=== PATIENT | male | born 1945 | race Two or more races ===

== ENCOUNTER 2019-10-28 11:12 | Emergency (ER) | payer MEDICARE, MEDICAID ==
[~2019-10-28] VITALS: Ht 175.3 cm; Wt 111.6 kg
[2019-10-28 11:07] VITALS: BP 126/81
[~2019-10-28 11:12] MED LIST: ASPIR 8181 MG ORAL; ATORVASTATIN CA40 MG ORAL; BENADRYL25 M3 PO; CATAPRES0.1 MG ORAL; DIGOXIN0.125 MG/2 ORAL; DULCOLAX10 MG RC; FAMOTIDINE20 MG ORAL; FERROUS SULFAT325 MG ORAL; FLEET ENEMA133 ML RECTAL; LACTULOSE10 GM PO; PRO-STAT LIQUID30 ML ORAL; VITAMIN C500 M1 GT
[2019-10-28] MEDS ORDERED: Pantoprazole Inj IV ONE (11:30)
--- NOTE | 2019-10-28 11:56 | Emergency Room Report ---
History of Present Illness General Chief Complaint: Gastrointestinal Bleed Source: Medical Record, EMS Present Illness HPI 74-year-old male presents to ED for evaluation. Per EMS patient had coffee- ground emesis today. Patient on ventilator with trach. Patient showing no signs of distress upon arrival. No reported fevers or chills. No reported shortness of breath. No sick contacts. Unable to provide any additional history at this time. No other aggravating relieving factors. Denies any other associated symptoms COVID-19 risk:Contact w/high r: No COVID-19 risk:Travel to affect: No Has patient experienced leal: No Allergies: Coded Allergies: No Known Allergies (Unverified , 08/12/19) Patient History Past Medical History: HTN, AFib, GERD, dementia Past Surgical History: pacemaker Pertinent Family History: none Social History: Denies: smoking, alcohol use, drug use Immunizations: UTD Reviewed Nursing Documentation: PMH: Agreed; PSxH: Agreed Nursing Documentation-PMH Past Medical History: No History, Except For Hx Cardiac Problems: Yes - AFIB, ANEMIA, HF Hx Hypertension: Yes Hx Pacemaker: Yes Hx Asthma: No - ENCEPHALOPATHY, CIRRHOSIS, PE Hx Diabetes: Yes Hx Cancer: No Hx Gastrointestinal Problems: Yes Hx Neurological Problems: Yes Hx Cerebrovascular Accident: Yes Hx Dementia: Yes Hx Paralysis: Yes Hx Memory Loss: Yes Review of Systems All Other Systems: limited Physical Exam Vital Signs Date Time Temp Pulse Resp B/P (MAP) Pulse Ox O2 Delivery O2 Flow Rate FiO2 10/28/19 10:59 96.8 97 20 133/93 (106) 100 Ambu-Bag 4.0 10/28/19 11:24 40 Sp02 EP Interpretation: reviewed, normal General Appearance: no apparent distress, alert, GCS 15, non-toxic Head: normocephalic, atraumatic Eyes: bilateral eye normal inspection, bilateral eye PERRL ENT: hearing grossly normal, normal pharynx, no angioedema, normal voice Neck: full range of motion, supple/symm/no masses, tracheotomy Respiratory: chest non-tender, lungs clear, normal breath sounds, speaking full sentences Cardiovascular #1: regular rate, rhythm, no edema Cardiovascular #2: 2+ carotid (R), 2+ carotid (L), 2+ radial (R), 2+ radial (L) , 2+ dorsalis pedis (R), 2+ dorsalis pedis (L) Gastrointestinal: normal bowel sounds, non tender, soft, non-distended, no guarding, no rebound Rectal: deferred Genitourinary: normal inspection, no CVA tenderness Musculoskeletal: back normal, normal range of motion, gait/station normal, non- tender Neurologic: alert, motor strength/tone normal, oriented x3, sensory intact, responsive, speech normal Psychiatric: judgement/insight normal, memory normal, mood/affect normal, no suicidal/homicidal ideation Reflexes: 3+ bicep (R), 3+ bicep (L), 3+ tricep (R), 3+ tricep (L), 3+ knee (R) , 3+ knee (L) Skin: other - see nursing skin notes Lymphatic: no adenopathy Medical Decision Making Diagnostic Impression: Primary Impression: UGIB (upper gastrointestinal bleed) Additional Impression: Chronic respiratory failure Qualified Codes: J96.10 - Chronic respiratory failure, unspecified whether with hypoxia or hypercapnia ER Course Hospital Course 74 yo M presenst with coffee ground emesis Differential diagnoses include: UGIB, LGIB, hemorrhoids Clinical course Patient placed on stretcher. phototypesetting equipment monitor. After initial history and physical I ordered labs, IV fluids, UA Labs - minimal leukocytosis, Hb/Hct stable. BUN elevated. UA unremarkable, coags ok EKG - NSR, no acute ischemic changes interpreted by me CXR - no acute process given protonix, given zofran. given IVFS. because of insurance patient will be transferred I feel this is a highly complex case requiring extensive working including EKG/ Rhythm strip, Xray/CT/US, Blood/urine lab work, repeat exams while in ED, and administration of strong opiates/narcotics for pain control, admission to hospital or close patient follow up. Diagnosis - UGIB, chronic respiratory failure transferred in serious condition Labs Test 10/28/19 11:20 10/28/19 12:11 10/28/19 13:02 White Blood Count 12.1 K/UL (4.8-10.8) Red Blood Count 3.90 M/UL (4.70-6.10) Hemoglobin 10.0 G/DL (14.2-18.0) Hematocrit 31.8 % (42.0-52.0) Mean Corpuscular Volume 82 FL (80-99) Mean Corpuscular Hemoglobin 25.7 PG (27.0-31.0) Mean Corpuscular Hemoglobin Concent 31.6 G/DL (32.0-36.0) Red Cell Distribution Width 17.3 % (11.6-14.8) Platelet Count 209 K/UL (150-450) Mean Platelet Volume 8.2 FL (6.5-10.1) Neutrophils (%) (Auto) 72.4 % (45.0-75.0) Lymphocytes (%) (Auto) 17.5 % (20.0-45.0) Monocytes (%) (Auto) 6.9 % (1.0-10.0) Eosinophils (%) (Auto) 2.1 % (0.0-3.0) Basophils (%) (Auto) 1.1 % (0.0-2.0) Urine Color Yellow Urine Appearance Clear Urine pH 6 (4.5-8.0) Urine Specific [place] 1.010 (1.005-1.035) Urine Protein 2+ (NEGATIVE) Urine Glucose (UA) Negative (NEGATIVE) Urine Ketones Negative (NEGATIVE) Urine Blood Negative (NEGATIVE) Urine Nitrite Negative (NEGATIVE) Urine Bilirubin Negative (NEGATIVE) Urine Urobilinogen Normal MG/DL (0.0-1.0) Urine Leukocyte Esterase Trace (NEGATIVE) Urine RBC 0-2 /HPF (0 - 0) Urine WBC 0-2 /HPF (0 - 0) Urine Squamous Epithelial Cells None /LPF (NONE/OCC) Urine Bacteria Occasional /HPF (NONE) Prothrombin Time 11.6 SEC (9.30-11.50) Prothromb Time International Ratio 1.1 (0.9-1.1) Activated Partial Thromboplast Time 27 SEC (23-33) Sodium Level 136 MMOL/L (136-145) Potassium Level 4.1 MMOL/L (3.5-5.1) Chloride Level 100 MMOL/L (98-107) Carbon Dioxide Level 32 MMOL/L (21-32) Anion Gap 4 mmol/L (5-15) Blood Urea Nitrogen 29 mg/dL (7-18) Creatinine 0.8 MG/DL (0.55-1.30) Estimat Glomerular Filtration Rate > 60 mL/min (>60) Glucose Level 113 MG/DL (74-106) Calcium Level 9.1 MG/DL (8.5-10.1) Total Bilirubin 0.5 MG/DL (0.2-1.0) Aspartate Amino Transf (AST/SGOT) 31 U/L (15-37) Alanine Aminotransferase (ALT/SGPT) 26 U/L (12-78) Alkaline Phosphatase 102 U/L (46-116) Total Protein 9.5 G/DL (6.4-8.2) Albumin 2.0 G/DL (3.4-5.0) Globulin 7.5 g/dL Albumin/Globulin Ratio 0.3 (1.0-2.7) Lipase 230 U/L (73-393) EKG Diagnostic Results Rate: normal Rhythm: other - atrial fib ST Segments: no acute changes ASA given to the pt in ED: No Rhythm Strip Diag. Results EP Interpretation: yes Rhythm: no PVC's, no ectopy Chest X-Ray Diagnostic Results Chest X-Ray Diagnostic Results : Chest X-Ray Ordered: Yes # of Views/Limited/Complete: 1 View Indication: Other EP Interpretation: Yes Interpretation: no consolidation, no effusion, no pneumothorax, no acute cardiopulmonary disease Impression: No acute disease Electronically Signed by: Electronically signed by Rasta Garcia MD Last Vital Signs Date Time Temp Pulse Resp B/P (MAP) Pulse Ox O2 Delivery O2 Flow Rate FiO2 10/28/19 11:24 95 17 40 10/28/19 11:07 Mechanical Ventilator 10/28/19 11:07 97.0 126/81 100 10/28/19 10:59 4.0 Status: improved Disposition: XFER SHT-TRM HOSP Condition: Serious Rasta Garcia MD Oct 28, 2019 11:56
--- NOTE | 2019-10-28 12:03 | Diagnostic Imaging Report ---
EXAM: XR Chest, 1 View CLINICAL HISTORY: ABD PAIN TECHNIQUE: Frontal view of the chest. COMPARISON: Chest x-ray 08/13/19 FINDINGS: Lungs: Mild central vascular congestion. No consolidation. Pleural space: Small bilateral pleural effusions. No pneumothorax. Heart: Cardiomegaly. Mediastinum: Unremarkable. Bones/joints: Unremarkable. Tubes, lines and devices: Tracheostomy tube. Cardiac pacemaker. IMPRESSION: Findings may be mild CHF.
[2019-10-28 12:10] LABS: BASOPHILS % (AUTO) 1.1 % (0.0-2.0); EOSINOPHILS % (AUTO) 2.1 % (0.0-3.0); HEMATOCRIT 31.8 % (42.0-52.0); LYMPHOCYTES % (AUTO) 17.5 % (20.0-45.0); MEAN CORPUSCULAR VOLUME 82 FL (80-99); MONOCYTES % (AUTO) 6.9 % (1.0-10.0); NEUTROPHILS % (AUTO) 72.4 % (45.0-75.0); PLATELET COUNT 209 K/UL (150-450); RED CELL DISTRIBUTION WIDTH 17.3 % (11.6-14.8); WHITE BLOOD COUNT 12.1 K/UL (4.8-10.8)
[2019-10-28 12:23] LABS: APPEARANCE,URINE CLEAR; BILIRUBIN, URINE NEGATIVE (NEGATIVE); GLUCOSE, URINE (UA) NEGATIVE (NEGATIVE); KETONES,URINE NEGATIVE (NEGATIVE); NITRITE,URINE NEGATIVE (NEGATIVE); PH,URINE 6 (4.5-8.0); PROTEIN,URINE 2+ (NEGATIVE); UROBILINOGEN,URINE NORMAL MG/DL (0.0-1.0)
[2019-10-28 12:48] LABS: COLOR,URINE YELLOW; LEUKOCYTE ESTERASE ,URINE TRACE (NEGATIVE)
[2019-10-28 13:44] LABS: ANION GAP 4 mmol/L (5-15); BLOOD UREA NITROGEN 29 mg/dL (7-18); CALCIUM 9.1 MG/DL (8.5-10.1); CARBON DIOXIDE 32 MMOL/L (21-32); CHLORIDE 100 MMOL/L (98-107); CREATININE 0.8 MG/DL (0.55-1.30); POTASSIUM 4.1 MMOL/L (3.5-5.1); SODIUM 136 MMOL/L (136-145)
[2019-10-28 13:48] LABS: ALANINE AMINOTRANSFERASE 26 U/L (12-78); ALBUMIN/GLOBULIN RATIO 0.3 (1.0-2.7); ALKALINE PHOSPHATASE 102 U/L (46-116); ASPARTATE AMINO TRANSFERASE 31 U/L (15-37); BILIRUBIN,TOTAL 0.5 MG/DL (0.2-1.0)
[2019-10-28 13:53] LABS: INR 1.1 (0.9-1.1)
[2019-10-28 15:14] VITALS: BP 122/94
== END 2019-10-28 15:14 | disposition home or self-care (01) ==
LOC: EDBD 11:12 → EMR 11:40
DX: K92.2 Gastrointestinal hemorrhage, unspecified (principal); J96.10 Chronic respiratory failure, unspecified whether with hypoxia or hypercapnia; D72.829 Elevated white blood cell count, unspecified; I10 Essential (primary) hypertension; K21.9 Gastro-esophageal reflux disease without esophagitis; F03.90 Unspecified dementia, unspecified severity, without behavioral disturbance, psychotic disturbance, mood disturbance, and anxiety; Z95.0 Presence of cardiac pacemaker; Z86.711 Personal history of pulmonary embolism; Z86.73 Personal history of transient ischemic attack (TIA), and cerebral infarction without residual deficits; E11.9 Type 2 diabetes mellitus without complications
CPT/HCPCS: 36415; 71045; 80053; 81003; 83690; 85025; 85610; 85730; 86850; 86870; 86900; 86901; 86904; 93005; 96361; 96374; 96375; 99285; C9113; J2405; J7030

== ENCOUNTER 2020-02-08 11:51 | Emergency (ER) | payer MEDICARE, MEDICAID ==
[~2020-02-08] VITALS: Ht 175.3 cm; Wt 98.9 kg
[~2020-02-08 11:51] MED LIST changes: +ATORVASTATIN CA40 MG GT; -ATORVASTATIN CA40 MG ORAL; +CATAPRES0.1 MG GT; -CATAPRES0.1 MG ORAL; +DIGOXIN0.125 MG/2 GT; -DIGOXIN0.125 MG/2 ORAL; +FAMOTIDINE20 MG GT; -FAMOTIDINE20 MG ORAL
[2020-02-08 12:10] VITALS: BP 115/70
--- NOTE | 2020-02-08 12:10 | NUR ---
ED Nurse Note: pt robinson in by ambulance from [facility] due to coffee ground vomit this morning. pt has trach and G-tube in mid abdomen. pt non verbal and follows commands. pt remaining in calm. no vomit after arrival. vs stable and RT at bedside.
[2020-02-08] MEDS ORDERED: Pantoprazole Inj IV ONE (12:15)
--- NOTE | 2020-02-08 12:40 | NUR ---
ED Nurse Note: x-ray done at bedside.
[2020-02-08 12:51] LABS: BASOPHILS % (AUTO) 0.9 % (0.0-2.0); EOSINOPHILS % (AUTO) 1.3 % (0.0-3.0); HEMATOCRIT 30.1 % (42.0-52.0); LYMPHOCYTES % (AUTO) 23.8 % (20.0-45.0); MEAN CORPUSCULAR VOLUME 79 FL (80-99); MONOCYTES % (AUTO) 9.5 % (1.0-10.0); NEUTROPHILS % (AUTO) 64.6 % (45.0-75.0); PLATELET COUNT 202 K/UL (150-450); RED BLOOD COUNT 3.82 M/UL (4.70-6.10); RED CELL DISTRIBUTION WIDTH 15.7 % (11.6-14.8)
[2020-02-08 13:05] LABS: ANION GAP 7 mmol/L (5-15); BLOOD UREA NITROGEN 24 mg/dL (7-18); CARBON DIOXIDE 32 MMOL/L (21-32); CHLORIDE 101 MMOL/L (98-107); CREATININE 0.9 MG/DL (0.55-1.30); POTASSIUM 3.6 MMOL/L (3.5-5.1); SODIUM 140 MMOL/L (136-145)
[2020-02-08 13:08] LABS: INR 1.1 (0.9-1.1)
[2020-02-08 13:11] LABS: ALANINE AMINOTRANSFERASE 20 U/L (12-78); ALBUMIN 2.1 G/DL (3.4-5.0); ALBUMIN/GLOBULIN RATIO 0.3 (1.0-2.7); ALKALINE PHOSPHATASE 92 U/L (46-116); ASPARTATE AMINO TRANSFERASE 41 U/L (15-37); BILIRUBIN,TOTAL 0.9 MG/DL (0.2-1.0)
[2020-02-08] MEDS ORDERED: Azithromycin 500 MG in NS 275 ML IV ONE (13:30)
[2020-02-08] MEDS ORDERED: Cefepime HCl 1 GM in D5W 55 ML IVPB ONE (13:30)
[2020-02-08] MEDS ORDERED: ZOFRAN4 M1 GT (13:50)
[2020-02-08] MEDS ORDERED: MILK OF MA2400 MG/10 ORAL (13:50)
[2020-02-08 13:51] LABS: APPEARANCE,URINE CLEAR; BILIRUBIN, URINE NEGATIVE (NEGATIVE); GLUCOSE, URINE (UA) NEGATIVE (NEGATIVE); KETONES,URINE 1+ (NEGATIVE); LEUKOCYTE ESTERASE ,URINE 1+ (NEGATIVE); NITRITE,URINE NEGATIVE (NEGATIVE); PH,URINE 6 (4.5-8.0); PROTEIN,URINE 2+ (NEGATIVE); UROBILINOGEN,URINE 4 MG/DL (0.0-1.0)
[2020-02-08 13:57] LABS: COLOR,URINE YELLOW
--- NOTE | 2020-02-08 14:28 | Emergency Room Report ---
History of Present Illness General Chief Complaint: Gastrointestinal Illness Source: Medical Record, EMS Present Illness HPI 74-year-old male presents to ED for coffee-ground emesis. Brought in by EMS from half-way facility. Had 2 episodes of coffee-ground emesis this morning. History of trach/vent. No active vomiting on arrival. No signs of distress. Patient will be unable to provide any additional history at this time. No fevers or chills. No other aggravating relieving factors. 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, 2020 COVID-19 Screening: Negative COVID-19 COVID-19 Testing Source: [facility] [place] Patient History Past Medical History: HTN, AFib, CVA/TIA, dementia Past Surgical History: pacemaker, other - trach Pertinent Family History: none Social History: Denies: smoking, alcohol use, drug use Immunizations: UTD Reviewed Nursing Documentation: PMH: Agreed; PSxH: Agreed Nursing Documentation-PMH Hx Cardiac Problems: Yes - AFIB, ANEMIA, HF Hx Hypertension: Yes Hx Pacemaker: Yes Hx Asthma: No - ENCEPHALOPATHY, CIRRHOSIS, PE Hx Diabetes: Yes Hx Cancer: No Hx Gastrointestinal Problems: Yes Hx Neurological Problems: Yes Hx Cerebrovascular Accident: Yes Hx Dementia: Yes Hx Paralysis: Yes Hx Memory Loss: Yes Review of Systems All Other Systems: limited Physical Exam Vital Signs Date Time Temp Pulse Resp B/P (MAP) Pulse Ox O2 Delivery O2 Flow Rate FiO2 02/08/20 11:54 98.6 64 16 160/82 (108) 99 Trach Collar 5.0 02/08/20 12:00 40 Sp02 EP Interpretation: reviewed, normal General Appearance: no apparent distress, alert, GCS 15, non-toxic Head: normocephalic, atraumatic Eyes: bilateral eye normal inspection, bilateral eye PERRL ENT: hearing grossly normal, normal pharynx, no angioedema, normal voice Neck: full range of motion, supple/symm/no masses, tracheotomy Respiratory: chest non-tender, lungs clear, normal breath sounds, speaking full sentences Cardiovascular #1: regular rate, rhythm, no edema Cardiovascular #2: 2+ carotid (R), 2+ carotid (L), 2+ radial (R), 2+ radial (L) , 2+ dorsalis pedis (R), 2+ dorsalis pedis (L) Gastrointestinal: normal bowel sounds, non tender, soft, non-distended, no guarding, no rebound Rectal: deferred Genitourinary: normal inspection, no CVA tenderness Musculoskeletal: back normal, normal range of motion, non-tender Neurologic: alert, motor strength/tone normal, sensory intact, responsive Psychiatric: other - Nonverbal Reflexes: 3+ bicep (R), 3+ bicep (L), 3+ tricep (R), 3+ tricep (L), 3+ knee (R) , 3+ knee (L) Skin: other - The nursing notes Lymphatic: no adenopathy Medical Decision Making Diagnostic Impression: Primary Impression: UGIB (upper gastrointestinal bleed) Additional Impression: Pneumonia Qualified Codes: J18.9 - Pneumonia, unspecified organism ER Course Hospital Course 74-year-old male presents with coffee-ground emesis Differential diagnoses include: UGIB, LGIB, hemorrhoids Clinical course Patient placed on stretcher. patient monitor. On ventilator. After initial history and physical I ordered labs, IV fluids, EKG, CXR, protonix, Zofran Labs - no leukocytosis, Hb/Hct 9/30. BUN elevated. UA unremarkable EKG - afib no acute ischemic changes interpreted by me CXR - R sided infiltrate Patient had COVID testing recently done in the past week. And was negative. Given antibiotics. because of insurance patient will be transferred. PMD Dr. Dupree informed I feel this is a highly complex case requiring extensive working including EKG/ Rhythm strip, Xray/CT/US, Blood/urine lab work, repeat exams while in ED, and administration of strong opiates/narcotics for pain control, admission to hospital or close patient follow up. Diagnosis - UGIB, pneumonia transferred in serious condition Labs Test 02/08/20 12:30 02/08/20 12:36 02/08/20 13:25 Lactic Acid Level 1.60 mmol/L (0.4-2.0) White Blood Count 11.0 K/UL (4.8-10.8) Red Blood Count 3.82 M/UL (4.70-6.10) Hemoglobin 9.0 G/DL (14.2-18.0) Hematocrit 30.1 % (42.0-52.0) Mean Corpuscular Volume 79 FL (80-99) Mean Corpuscular Hemoglobin 23.6 PG (27.0-31.0) Mean Corpuscular Hemoglobin Concent 29.9 G/DL (32.0-36.0) Red Cell Distribution Width 15.7 % (11.6-14.8) Platelet Count 202 K/UL (150-450) Mean Platelet Volume 9.8 FL (6.5-10.1) Neutrophils (%) (Auto) 64.6 % (45.0-75.0) Lymphocytes (%) (Auto) 23.8 % (20.0-45.0) Monocytes (%) (Auto) 9.5 % (1.0-10.0) Eosinophils (%) (Auto) 1.3 % (0.0-3.0) Basophils (%) (Auto) 0.9 % (0.0-2.0) Prothrombin Time 12.0 SEC (9.30-11.50) Prothromb Time International Ratio 1.1 (0.9-1.1) Activated Partial Thromboplast Time 27 SEC (23-33) Sodium Level 140 MMOL/L (136-145) Potassium Level 3.6 MMOL/L (3.5-5.1) Chloride Level 101 MMOL/L (98-107) Carbon Dioxide Level 32 MMOL/L (21-32) Anion Gap 7 mmol/L (5-15) Blood Urea Nitrogen 24 mg/dL (7-18) Creatinine 0.9 MG/DL (0.55-1.30) Estimat Glomerular Filtration Rate > 60 mL/min (>60) Glucose Level 97 MG/DL (74-106) Calcium Level 9.0 MG/DL (8.5-10.1) Total Bilirubin 0.9 MG/DL (0.2-1.0) Aspartate Amino Transf (AST/SGOT) 41 U/L (15-37) Alanine Aminotransferase (ALT/SGPT) 20 U/L (12-78) Alkaline Phosphatase 92 U/L (46-116) Total Protein 8.7 G/DL (6.4-8.2) Albumin 2.1 G/DL (3.4-5.0) Globulin 6.6 g/dL Albumin/Globulin Ratio 0.3 (1.0-2.7) Lipase 104 U/L (73-393) Urine Color Yellow Urine Appearance Clear Urine pH 6 (4.5-8.0) Urine Specific [place] 1.010 (1.005-1.035) Urine Protein 2+ (NEGATIVE) Urine Glucose (UA) Negative (NEGATIVE) Urine Ketones 1+ (NEGATIVE) Urine Blood Negative (NEGATIVE) Urine Nitrite Negative (NEGATIVE) Urine Bilirubin Negative (NEGATIVE) Urine Urobilinogen 4 MG/DL (0.0-1.0) Urine Leukocyte Esterase 1+ (NEGATIVE) Urine RBC 0-2 /HPF (0 - 0) Urine WBC 0-2 /HPF (0 - 0) Urine Squamous Epithelial Cells Occasional /LPF Urine Bacteria Occasional /HPF (NONE) Urine Mucus Occasional /LPF EKG Diagnostic Results Rate: normal Rhythm: other - afib ST Segments: no acute changes ASA given to the pt in ED: No Rhythm Strip Diag. Results EP Interpretation: yes Rhythm: no PVC's, no ectopy Chest X-Ray Diagnostic Results Chest X-Ray Diagnostic Results : Chest X-Ray Ordered: Yes # of Views/Limited/Complete: 1 View Indication: Other EP Interpretation: Yes Interpretation: no effusion, no pneumothorax, other - R sided infiltrate Impression: Other - PNA Electronically Signed by: Electronically signed by Rasta Garcia MD Last Vital Signs Date Time Temp Pulse Resp B/P (MAP) Pulse Ox O2 Delivery O2 Flow Rate FiO2 02/07/ 12:10 98.6 81 17 115/70 99 Mechanical Ventilator 5.0 40 Status: improved Disposition: SHORT-TERM HOSP Condition: Serious Referrals: Ubaldo Dupree MD (PCP) Rasta Garcia MD Feb 08, 2020 14:28
[2020-02-08 14:55] VITALS: BP 148/88
--- NOTE | 2020-02-08 15:11 | NUR ---
ED Nurse Note: REPORT GIVEN TO ROGER ZAMORA FROM [facility]
--- NOTE | 2020-02-08 15:45 | NUR ---
ED Nurse Note: transporation arrived and report given.
[2020-02-08 15:46] VITALS: BP 121/88
--- NOTE | 2020-02-08 15:58 | Diagnostic Imaging Report ---
Indication: Cough Technique: One view of the chest Comparison: 10/28/2019 Findings: Patchy infiltrates are seen in the right lung base and perihilar region. There are bilateral pleural effusions, increased from the previous exam. The heart size is upper limits of normal. There is a left chest AICD. There is a tracheostomy Impression: Patchy right basilar and perihilar infiltrates Bilateral pleural effusions Other findings as noted
--- NOTE | 2020-02-08 16:00 | NUR ---
ED Nurse Note: pt left unit with 2 seam checker and 1 RN in stable condition.
== END 2020-02-08 15:46 | disposition short-term general hospital (02) ==
LOC: EDUNIT# 11:51 → EDBD 11:51 → EMR 12:28
DX: K92.2 Gastrointestinal hemorrhage, unspecified (principal); J18.9 Pneumonia, unspecified organism; I10 Essential (primary) hypertension; I48.91 Unspecified atrial fibrillation; E11.9 Type 2 diabetes mellitus without complications; F03.90 Unspecified dementia, unspecified severity, without behavioral disturbance, psychotic disturbance, mood disturbance, and anxiety; G83.9 Paralytic syndrome, unspecified; Z86.73 Personal history of transient ischemic attack (TIA), and cerebral infarction without residual deficits
CPT/HCPCS: 36415; 71045; 80053; 81003; 83605; 83690; 85025; 85610; 85730; 86850; 86870; 86900; 86901; 87040; 87081; 93005; 96361; 96365; 96367; 96375; 99285; C9113; J0456; J0692; J2405; J7030; J7050

== ENCOUNTER 2020-03-01 17:56 | Emergency (ER) | payer MEDICARE, MEDICAID ==
[~2020-03-01] VITALS: Ht 175.3 cm; Wt 97.1 kg
[~2020-03-01 17:56] MED LIST changes: +MILK OF MA2400 MG/10 ORAL; +ZOFRAN4 M1 GT
--- NOTE | 2020-03-01 18:05 | NUR ---
ED Nurse Note: patient brought into ED from [facility] by ambulance due to coffee ground emesis x1 today at 3pm. patient is trach-vent patient, RT at bedside. patient placed on a secured entrance monitor. patient is awake alert, opens eyes spontaneously. Dr. Cruz at bedside.
[2020-03-01 18:38] VITALS: BP 139/93
[2020-03-01] MEDS ORDERED: cefTRIAXone 1 GM in NS 55 ML IVPB ONE (18:45)
[2020-03-01] MEDS ORDERED: Pantoprazole Inj IVP ONE (18:45)
[2020-03-01 19:07] LABS: ANION GAP 4 mmol/L (5-15); BLOOD UREA NITROGEN 31 mg/dL (7-18); CARBON DIOXIDE 35 MMOL/L (21-32); CHLORIDE 101 MMOL/L (98-107); CREATININE 0.9 MG/DL (0.55-1.30); POTASSIUM 3.6 MMOL/L (3.5-5.1); SODIUM 140 MMOL/L (136-145)
[2020-03-01 19:09] LABS: ALANINE AMINOTRANSFERASE 22 U/L (12-78); ASPARTATE AMINO TRANSFERASE 34 U/L (15-37); BILIRUBIN,TOTAL 0.8 MG/DL (0.2-1.0); CALCIUM 8.9 MG/DL (8.5-10.1)
--- NOTE | 2020-03-01 19:09 | Diagnostic Imaging Report ---
EXAM: XR Chest, 1 View CLINICAL HISTORY: PAIN TECHNIQUE: Frontal view of the chest. COMPARISON: No relevant prior studies available. FINDINGS: Lungs: Question airspace opacities within the right lung which may represent an infectious process. Pleural space: Question trace bilateral pleural effusions. Heart: Unremarkable. Mediastinum: Unremarkable. Bones/joints: Unremarkable. Tubes, lines and devices: Single lead cardiac pacemaker/AICD is noted. Upper abdomen: Gastric within the thoracic inlet. IMPRESSION: 1. Question airspace opacities within the right lung which may represent an infectious process. 2. Question trace bilateral pleural effusions.
[2020-03-01 19:10] LABS: ALBUMIN 2.1 G/DL (3.4-5.0); ALBUMIN/GLOBULIN RATIO 0.4 (1.0-2.7); ALKALINE PHOSPHATASE 86 U/L (46-116)
--- NOTE | 2020-03-01 19:11 | Emergency Room Report ---
History of Present Illness General Chief Complaint: Gastrointestinal Bleed Source: Patient, Medical Record, EMS Present Illness HPI 75-year-old -Faro[place] male with past medical history of chronic trach/PEG , CAD w pacemaker on bloodthinner, HTN, previous CVA sent from custodial facility by ambulance for hematemesis x1 prior to arrival. Patient is a phasic and a poor historian. History is obtained by EMS. According to EMS, SNF staff quantified the blood loss as "moderate". The patient's symptoms were gradual onset, severity was moderate, duration since 1 day. Quality: Bloody Severity: Moderate Past medical history: CAD, chronic trach PEG (FiO2 requirement 35%), hypertension, A. fib, previous CVA with right-sided deficits Past surgical history: Trach/PEG Smoking: UTO Alcohol use: UTO Drug use: UTO Review of systems: CONST: No fevers or chills, No night sweats PULMONARY: No productive cough, No shortness of breath CARDIAC: No chest pain, No palpitations GI: +HEMATEMESIS. No vomiting, No diarrhea , No melena_or_BRBPR : No dysuria, No hematuria, No discharge NEURO: No new_focal_weakness_or_numbness, No confusion, No vision changes 14 point Review of Systems is otherwise negative except per HPI Physical Exam: GENERAL: Awake, chronically ill-appearing, no acute distress. SPO2 100% on FiO2 35% trach. Right-sided deficits. Contracture right upper extremity EYES: Pupils reactive. Conjunctiva clear. ENT: External nose and ear appear normal. Oropharynx clear. Head atraumatic. NECK: No thyromegaly. No midline tenderness. Trach in place, c/d/i, no discharge or bleeding. LUNGS: Normal respiratory effort. Clear to auscultation. No stridor. No rales. No wheezes. CARDIAC: Regular rate and rhythm. Normal radial pulses bilaterally. No significant pedal edema. ABDOMEN: Soft, nontender, and nondistended. No rebound/guarding. No hepatosplenomegaly. G-tube in place, epigastrium, c/d/i, no discharge or tenderness. MSK: Poor muscle tone, contractures with rigidity in extremities. Extremities without asymmetric deformity or swelling. NEUROLOGIC: Awake. Does not follow commands for motor and sensory exam. No truncal ataxia. GCS 2-4-2, protecting airway, intact gag reflex. Withdraws to pain in extremities, groans and opens eyes to sternal rub. SKIN: Warm and dry. No cyanosis or urticaria present. - COORDINATION OF CARE Case was discussed with: Patient Any labs and imaging that were ordered were interpreted as part of the medical decision making: Medical Decision Making/Plan: Differential diagnosis includes upper GI bleed from bleeding peptic ulcer, bleeding duodenal ulcer, gastritis, esophageal varices, gastric varices, among others. Patient is protecting their airway, no active vomiting, no need for NG tube or intubation at this time. Tracheostomy is intact. CMP unremarkable. CBC hemolyzed twice. Hgb is pending. Admitting team Dr Vazquez aware. Currently patient is hemodynamically stable. Given the possibility of a bleeding peptic ulcer, Protonix IV was immediately started. Chest x-ray shows left lower lobe effusion versus atelectasis. ED intervention included Rocephin and azithromycin. COVID swab was negative. Chest x-ray shows no pneumothorax. No wide mediastinum. Abdominal examination is benign with no palpable masses. Because the patients hemoglobin is stable, emergent transfusion was not started ; however, the patient will need to be admitted for serial hemoglobin checks, and if downtrending, transfusion may be indicated at a later time. The patient has been stabilized to the best of this emergency department's capabilities. Given the patient's medical needs, appropriate facilities for transfer were discussed and the decision has been made to transfer this patient to [facility]. The receiving facility has the capacity and capabilities to provide care for the patient. I spoke with Dr Vazquez who accepted the patient in transfer. The patient has been informed and updated of their current clinical status. The patient has given verbal consent for the transfer. The patient will be transported by [facility]. 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 - "2 weeks ago" COVID-19 Screening: Negative COVID-19 COVID-19 Testing Source: [facility] Nursing Documentation-[facility] Past Medical History: No History, Except For Hx Cardiac Problems: Yes - AFIB, ANEMIA, HF Hx Hypertension: Yes Hx Pacemaker: Yes Hx Asthma: No - ENCEPHALOPATHY, CIRRHOSIS, PE Hx Diabetes: Yes Hx Cancer: No Hx Gastrointestinal Problems: Yes Hx Neurological Problems: Yes Hx Cerebrovascular Accident: Yes Hx Dementia: Yes Hx Paralysis: Yes Hx Memory Loss: Yes Physical Exam Vital Signs Date Time Temp Pulse Resp B/P (MAP) Pulse Ox O2 Delivery O2 Flow Rate FiO2 03/01/20 17:58 98.1 62 18 144/84 (104) 99 Mechanical Ventilator 03/01/20 18:13 35 Sp02 EP Interpretation: reviewed, normal Medical Decision Making Diagnostic Impression: Primary Impression: Hematemesis Additional Impressions: Upper GI bleed Pleural effusion PNA (pneumonia) Atrial fibrillation EKG Diagnostic Results PA Scribe Text 12-lead EKG (interpreted by me) Time: 1928 Indication: Rhythm analysis Tracing visualized and Interpreted by me. Rhythm: Atrial fibrillation, PVC Rate: 75 bpm QTc: 446 Morphology: No_significant_ST_elevations_or_depressions, No STEMI Impression: A. fib. PVC. Low QRS voltage. Nonspecific T wave inversion in V4 through V6 Rhythm Strip Diag. Results Rhythm Strip Time: 19:33 EP Interpretation: yes Rate: 77 Rhythm: other - A. fib, PVC Chest X-Ray Diagnostic Results Chest X-Ray Diagnostic Results : PA Scribe Text Chest X-Ray: Views: [ 1 ] view(s) Indication: Hematemesis Findings: Left pleural effusion versus pneumonia. Trach. No pneumothorax Impression: Left pleural effusion versus pneumonia. Trach. No pneumothorax The X-ray(s) were independently viewed and interpreted contemporaneously Electronically signed by Chelsy rivera DO Reevaluation Time: 19:34 Last Vital Signs Date Time Temp Pulse Resp B/P (MAP) Pulse Ox O2 Delivery O2 Flow Rate FiO2 03/01/20 18:38 76 16 Mechanical Ventilator 35 03/01/20 18:38 98.1 139/93 100 Status: improved Disposition: ADMITTED INPATIENT - [facility] Admit Decision Time: 19:00 Condition: Stable Referrals: Ubaldo Dupree MD (PCP) Chelsy Cruz D.O. Mar 01, 2020 19:11
[2020-03-01 19:12] VITALS: BP 111/79
--- NOTE | 2020-03-01 19:12 | NUR ---
ED Nurse Note: Received report from ROGER Goodwin. Patient stable upon reassessment.
--- NOTE | 2020-03-01 19:12 | NUR ---
HAND-OFF: Report given to Homa DURAN.endorsed all plan of care, patient's vital stable.
[2020-03-01] MEDS ORDERED: Azithromycin 500 MG in NS 275 ML IV ONE (19:15)
--- NOTE | 2020-03-01 19:22 | NUR ---
ED Nurse Note: family contact info: Carri Schulz: Granddaughter [phone]
[2020-03-01 19:26] LABS: APPEARANCE,URINE CLEAR; BILIRUBIN, URINE NEGATIVE (NEGATIVE); GLUCOSE, URINE (UA) NEGATIVE (NEGATIVE); KETONES,URINE 1+ (NEGATIVE); LEUKOCYTE ESTERASE ,URINE 1+ (NEGATIVE); NITRITE,URINE NEGATIVE (NEGATIVE); PH,URINE 7 (4.5-8.0); PROTEIN,URINE 2+ (NEGATIVE); UROBILINOGEN,URINE 4 MG/DL (0.0-1.0)
[2020-03-01 19:27] LABS: COLOR,URINE YELLOW
--- NOTE | 2020-03-01 19:39 | NUR ---
ED Nurse Note: Purple top redrawn and sent to lab
--- NOTE | 2020-03-01 19:56 | NUR ---
ED Nurse Note: Patient tracheostomy suctioned.
--- NOTE | 2020-03-01 20:56 | NUR ---
ED Nurse Note: Report given to ROGER Strickland at [facility].
[2020-03-01 21:22] LABS: BASOPHILS % (AUTO) 0.9 % (0.0-2.0); EOSINOPHILS % (AUTO) 1.8 % (0.0-3.0); HEMATOCRIT 29.8 % (42.0-52.0); LYMPHOCYTES % (AUTO) 17.3 % (20.0-45.0); MEAN CORPUSCULAR VOLUME 79 FL (80-99); MONOCYTES % (AUTO) 7.5 % (1.0-10.0); NEUTROPHILS % (AUTO) 72.5 % (45.0-75.0); PLATELET COUNT 146 K/UL (150-450); RED BLOOD COUNT 3.76 M/UL (4.70-6.10); RED CELL DISTRIBUTION WIDTH 20.4 % (11.6-14.8); WHITE BLOOD COUNT 8.9 K/UL (4.8-10.8)
[2020-03-01 21:25] LABS: INR 1.2 (0.9-1.1)
[2020-03-01 21:51] VITALS: BP 124/83
--- NOTE | 2020-03-01 23:14 | NUR ---
ED Nurse Note: Spoke to patient's granddaughter Carri, informed patient regarding pt unable to tolerate transport vent and new ambulance unit will be called.
[2020-03-01] MEDS ORDERED: Albuterol ud Inhalation HHN ONE (23:15)
--- NOTE | 2020-03-01 23:20 | NUR ---
ED Nurse Note: Called [facility] and was informed patient does not have a signed POLST, patient is full code per facility.
[2020-03-02 00:30] VITALS: BP 126/56
--- NOTE | 2020-03-02 00:30 | NUR ---
ER DISCHARGE NOTE: Patient is cleared to be transferred to [facility] per ERMD. pt transported with [facility] in stable condition accompanied by RN and 2 EMT. Patient transported without any belongings, family Carri informed of transfer. Patient packet provided along with CD of imaging. Patient discharged in stable condition.
== END 2020-03-02 00:30 | disposition short-term general hospital (02) ==
LOC: EDBD 17:56 → EMR 18:47 → EDBEDREQ 19:19 → EDBEDREQSVC 21:19 → EMR 03-02 00:30
DX: K92.0 Hematemesis (principal); K92.2 Gastrointestinal hemorrhage, unspecified; J90 Pleural effusion, not elsewhere classified; J18.9 Pneumonia, unspecified organism; I48.91 Unspecified atrial fibrillation; Z86.73 Personal history of transient ischemic attack (TIA), and cerebral infarction without residual deficits; Z95.0 Presence of cardiac pacemaker; I11.9 Hypertensive heart disease without heart failure; I25.10 Atherosclerotic heart disease of native coronary artery without angina pectoris; Z93.0 Tracheostomy status; K74.60 Unspecified cirrhosis of liver; E11.9 Type 2 diabetes mellitus without complications; Z86.711 Personal history of pulmonary embolism
CPT/HCPCS: 36415; 71045; 80053; 80307; 81003; 85025; 85610; 85730; 86850; 86900; 86901; 87040; 87081; 93005; 94002; 94003; 96365; 96367; 96375; 99285; C9113; J0456; J0696; J7050; U0002